=== PATIENT | female | born 1970 | race Caucasian/White ===

== ENCOUNTER → 2018-04-21 | Outpatient (CLI) | payer OTHER ==
--- NOTE | 2018-04-24 08:39 | RAD ---
DATE: 04/21/2018 11:30 AM EXAM: DIGITAL SCREEN BILAT W/CAD HISTORY: routine screening evaluation. COMPARISON: None, baseline examination Bilateral full field craniocaudal and mediolateral oblique images were obtained using digital technique. This study was interpreted with the benefit of Computerized Aided Detection (CAD ). Breast Density: The breast parenchyma shows scattered fibroglandular densities. Breast parenchyma level B. FINDINGS: Benign calcifications are present. A focal asymmetry is seen in the slightly lateral left breast at the superficial depth. A distinct focal asymmetry is seen in the upper outer right breast mid-deep depth. No suspicious right breast microcalcifications. No suspicious masses, microcalcifications or architectural distortion is present to suggest malignancy in the left breast. The visualized axillae are unremarkable. IMPRESSION: Right breast focal asymmetry is, findings for which additional imaging is advised. BI-RADS CATEGORY: 0 INCOMPLETE: NEEDS ADDITIONAL IMAGING EVALUATION AND/OR PRIOR MAMMOGRAMS FOR COMPARISON. RECOMMENDED FOLLOW-UP: ADD ADDITIONAL IMAGING the patient will be recalled for additional imaging of the right breast. Spot compression views of the right breast in the CC and MLO projection is recommended with possible ultrasound. PQRS compliance statement: Patient information was entered into a reminder system with a target due date-immediate recall for the next mammogram. Mammography is a sensitive method for finding small breast cancers, but it does not detect them all and is not a substitute for careful clinical examination. A negative mammogram does not negate a clinically suspicious finding and should not result in delay in biopsying a clinically suspicious abnormality. "Our facility is accredited by the [employer] Mammography [employer]." STEPHD
== END | disposition home or self-care (01) ==
LOC: MAMMO 09:00
PROVIDERS: ATTEND Nurse Practitioner Family
DX: Z12.31 Encounter for screening mammogram for malignant neoplasm of breast (principal)
CPT/HCPCS: 77067

== ENCOUNTER → 2018-05-26 | Outpatient (CLI) | payer OTHER ==
--- NOTE | 2018-05-26 14:59 | RAD ---
DATE: 05/26/2018 EXAM: DIGITAL DIAGNOSTIC RT, BREAST RIGHT HISTORY: Suspicious screening study COMPARISON: 04/21/2018 This study was interpreted with the benefit of Computerized Aided Detection (CAD). Breast Density: SCATTERED The breast parenchyma shows scattered fibroglandular densities. Breast parenchyma level B. FINDINGS: There is a 1 cm nodule in the anterior aspect of the right breast at approximately the 8:30 location. This is best demonstrated on the CC yifan image #27. It lies approximately 2 cm lateral to the nipple. No associated microcalcifications are seen. Its margins are slightly lobulated. Right breast ultrasound, 05/26/2018: A targeted ultrasound exam of the right breast was performed. At the 8:30 location approximately 3 cm from the nipple there is an oval-shaped hypoechoic nodule. Its margins are slightly lobulated. There is posterior acoustic shadowing. The nodule is wider than tall. It measures 12 x 5 x 4 mm. No internal color flow is evident. This corresponds in location to the mammographic finding. No other abnormality was seen in this region of the breast. While this may be a fibroadenoma, a circumscribed malignancy cannot be excluded. Ultrasound-guided biopsy is suggested for further evaluation. IMPRESSION: Suspicious right breast nodule as shown above. Ultrasound-guided biopsy is suggested. BI-RADS CATEGORY: 4 SUSPICIOUS ABNORMALITY- BIOPSY SHOULD BE CONSIDERED RECOMMENDED FOLLOW-UP: BIO BIOPSY RECOMMENDED Note: The findings were given to the patient at the time of the exam by the cardiopulmonary technologist chief. The patient understands the recommendation for biopsy and will follow-up with the ordering provider. PQRS compliance statement: Patient information was entered into a reminder system with a target due date for the next mammogram. Mammography is a sensitive method for finding small breast cancers, but it does not detect them all and is not a substitute for careful clinical examination. A negative mammogram does not negate a clinically suspicious finding and should not result in delay in biopsying a clinically suspicious abnormality. "Our facility is accredited by the [employer] Mammography [employer]."
== END | disposition home or self-care (01) ==
LOC: MAMMO 13:00
PROVIDERS: ATTEND Nurse Practitioner Family
DX: N63.13 Unspecified lump in the right breast, lower outer quadrant (principal)
CPT/HCPCS: 76641; 77065